=== PATIENT | male | born 1945 | race Asian ===

== ENCOUNTER 2022-09-29 18:36 | Inpatient (IN) | payer MEDICARE, OTHER ==
[~2022-09-29] VITALS: Ht 172.7 cm; Wt 80.7 kg
[2022-09-29 20:30] VITALS: BP 135/85
[2022-09-29] MEDS ORDERED: ALBUTEROL SULFATE HFA 90 MCG/PUFF 8 GM INHALER IH PRN (20:30)
[2022-09-29] MEDS ORDERED: BISACODYL 10 MG RECTAL RECTAL SUPPOSITORY PR PRN (20:30)
[2022-09-29] MEDS ORDERED: OxyCODONE HCL 5 MG IR TABLET PO PRN (20:30)
[2022-09-29] MEDS: BUDESONIDE/FORMOTEROL FUMARATE 160-4.5 MCG/PUFF 10.2 GM INHALER IH SCH ×2 (21:00→21:23)
[2022-09-29 21:15] VITALS: BP 135/85
[2022-09-29] MEDS: ETHYL ALCOHOL 62% ANTISEPTIC NASAL SANITIZER 0.6 ML AMPUL NASAL SCH (21:15)
[2022-09-29] MEDS: DOCUSATE SODIUM 100 MG CAPSULE PO SCH (21:15)
[2022-09-29] MEDS: LevETIRAcetam 500 MG TABLET PO SCH (21:16)
[2022-09-29] MEDS: MONTELUKAST SODIUM 10 MG TABLET PO SCH (21:16)
[2022-09-29] MEDS: ATORVASTATIN CALCIUM 20 MG TABLET PO SCH (21:17)
[2022-09-29] MEDS: SENNOSIDES 8.6 MG TABLET PO SCH (21:17)
[2022-09-29] MEDS: SODIUM CHLORIDE 1 GM TABLET PO SCH (21:18)
[2022-09-29] MEDS: TERAZOSIN HCL 5 MG CAPSULE PO SCH (21:18)
[2022-09-29] MEDS: TraZODone HCL 50 MG TABLET PO PRN (21:23)
[2022-09-29] MEDS: IPRATROPIUM BROMIDE 0.5 MG/2.5 ML NEB SOLUTION NEB PRN (21:53)
[2022-09-30] MEDS ORDERED: PNEUMOCOCCAL VACCINE POLYVALENT 0.5 ML VIAL [PPSV23] IM. ONE (03:45)
[2022-09-30 04:10] VITALS: BP 151/78
[2022-09-30 04:15] VITALS: BP 125/87
[2022-09-30 06:37] LABS: BASOPHILS % (AUTO) 0.5 % (0.0-2.0); EOSINOPHILS % (AUTO) 1.6 % (1.0-6.0); HEMOGLOBIN 12.7 g/dL (13.5-17.5); LYMPHOCYTES % (AUTO) 13.5 % (22.0-44.0); MEAN CORPUSCULAR HGB CONC 33.6 G/dL (31.0-37.0); MEAN CORPUSCULAR VOLUME 98 fL (80-100); MONOCYTES # (AUTO) 0.9 K/uL (0.1-1.0); MONOCYTES % (AUTO) 12.3 % (2.0-9.0); NEUTROPHILS # (AUTO) 5.5 K/uL (1.8-7.7); NEUTROPHILS % (AUTO) 72.1 % (40.0-70.0); PLATELET COUNT (AUTO) 263 K/uL (150-450); RED BLOOD CELL COUNT(AUTO) 3.86 MIL/uL (4.50-5.90); RED CELL DISTRIBUTION WIDTH 12.9 % (11.5-14.5)
[2022-09-30 07:05] LABS: ALANINE AMINOTRANSFERASE 48 U/L (12-78); ALBUMIN 3.1 g/dL (3.4-5.0); ALKALINE PHOSPHATASE 58 U/L (46-116); ANION GAP 8 mmol/L (8-16); ASPARTATE AMINOTRANSFERASE 28 U/L (15-37); BILIRUBIN,TOTAL 0.7 mg/dL (0.1-1.0); CALCIUM, TOTAL 8.5 mg/dL (8.8-10.5); CARBON DIOXIDE 24 mmol/L (22-29); CHLORIDE 107 mmol/L (98-107); CREATININE 0.77 mg/dL (0.60-1.30); GLOMERULAR FILTR. RATE CALC > 60 mL/min (>60); GLUCOSE,RANDOM 111 mg/dL (70-110); POTASSIUM 4.1 mmol/L (3.5-5.1); SODIUM SERUM 139 mmol/L (136-145); TOTAL PROTEIN, SERUM 7.2 g/dL (6.4-8.2); UREA NITROGEN, BLOOD 16 mg/dL (7-18)
[2022-09-30] MEDS: LevETIRAcetam 500 MG TABLET PO SCH ×2 (08:20→21:03)
[2022-09-30] MEDS: AmLODIPine BESYLATE 2.5 MG TABLET PO SCH (08:20)
[2022-09-30] MEDS: MULTIVITAMINS WITH MINERALS, THERAPEUTIC TABLET PO SCH (08:20)
[2022-09-30] MEDS: DOCUSATE SODIUM 100 MG CAPSULE PO SCH ×2 (08:20→21:00)
[2022-09-30] MEDS: ETHYL ALCOHOL 62% ANTISEPTIC NASAL SANITIZER 0.6 ML AMPUL NASAL SCH ×2 (08:21→21:01)
[2022-09-30] MEDS: CETIRIZINE HCL 10 MG TABLET PO SCH (08:21)
[2022-09-30] MEDS: SODIUM CHLORIDE 1 GM TABLET PO SCH ×3 (08:21→21:02)
[2022-09-30] MEDS: BUDESONIDE/FORMOTEROL FUMARATE 160-4.5 MCG/PUFF 10.2 GM INHALER IH SCH ×3 (08:22→21:00)
[2022-09-30 08:30] VITALS: BP 134/81
[2022-09-30] MEDS ORDERED: ALBUTEROL SULFATE HFA 90 MCG/PUFF 8 GM INHALER IH PRN (08:30)
[2022-09-30 20:01] VITALS: BP 132/98
[2022-09-30] MEDS: SENNOSIDES 8.6 MG TABLET PO SCH (21:00)
[2022-09-30] MEDS: ATORVASTATIN CALCIUM 20 MG TABLET PO SCH (21:02)
[2022-09-30] MEDS: TraZODone HCL 50 MG TABLET PO PRN (21:02)
[2022-09-30] MEDS: MONTELUKAST SODIUM 10 MG TABLET PO SCH (21:02)
[2022-09-30] MEDS: TERAZOSIN HCL 5 MG CAPSULE PO SCH (21:02)
[2022-09-30] MEDS: IPRATROPIUM BROMIDE 0.5 MG/2.5 ML NEB SOLUTION NEB PRN (22:00)
[2022-10-01] MEDS: AmLODIPine BESYLATE 2.5 MG TABLET PO SCH (09:00)
[2022-10-01] MEDS: DOCUSATE SODIUM 100 MG CAPSULE PO SCH ×2 (09:00→21:00)
[2022-10-01] MEDS: BUDESONIDE/FORMOTEROL FUMARATE 160-4.5 MCG/PUFF 10.2 GM INHALER IH SCH ×2 (10:03→21:00)
[2022-10-01] MEDS: ETHYL ALCOHOL 62% ANTISEPTIC NASAL SANITIZER 0.6 ML AMPUL NASAL SCH ×2 (10:03→21:08)
[2022-10-01] MEDS: SODIUM CHLORIDE 1 GM TABLET PO SCH ×3 (10:04→21:04)
[2022-10-01] MEDS: LevETIRAcetam 500 MG TABLET PO SCH ×2 (10:04→21:04)
[2022-10-01] MEDS: MULTIVITAMINS WITH MINERALS, THERAPEUTIC TABLET PO SCH (10:04)
[2022-10-01] MEDS: PANTOPRAZOLE SODIUM 40 MG DR TABLET PO SCH (10:05)
[2022-10-01] MEDS: CETIRIZINE HCL 10 MG TABLET PO SCH (10:05)
[2022-10-01 12:00] VITALS: BP 103/71
[2022-10-01 12:03] VITALS: BP 120/73
[2022-10-01 12:06] VITALS: BP 127/83
[2022-10-01 16:30] VITALS: BP 151/36
[2022-10-01 16:32] VITALS: BP 125/99
[2022-10-01 18:24] VITALS: BP 147/100
[2022-10-01] MEDS: SENNOSIDES 8.6 MG TABLET PO SCH (21:00)
[2022-10-01] MEDS: ATORVASTATIN CALCIUM 20 MG TABLET PO SCH (21:04)
[2022-10-01] MEDS: TERAZOSIN HCL 5 MG CAPSULE PO SCH (21:06)
[2022-10-01] MEDS: MONTELUKAST SODIUM 10 MG TABLET PO SCH (21:07)
[2022-10-01] MEDS: TraZODone HCL 50 MG TABLET PO PRN (21:08)
[2022-10-01] MEDS: IPRATROPIUM BROMIDE 0.5 MG/2.5 ML NEB SOLUTION NEB PRN (23:06)
[2022-10-01] MEDS: ALBUTEROL SULFATE 2.5 MG/0.5 ML NEB SOLUTION NEB PRN (23:06)
[2022-10-02 04:33] VITALS: BP 140/76
[2022-10-02] MEDS ORDERED: CETI-450 PO (04:33)
[2022-10-02] MEDS ORDERED: LISI-894 PO (04:33)
[2022-10-02] MEDS ORDERED: MONT-35 PO (04:33)
[2022-10-02] MEDS ORDERED: MULT-660 PO (04:33)
[2022-10-02] MEDS ORDERED: GUAI400T94 PO (04:33)
[2022-10-02] MEDS ORDERED: GLUC1TAB61 PO (04:33)
[2022-10-02] MEDS ORDERED: AMLO2.5T96 PO (04:33)
[2022-10-02] MEDS ORDERED: ALBU18HF12 IH (04:33)
[2022-10-02 08:05] VITALS: BP 141/96
[2022-10-02] MEDS: ETHYL ALCOHOL 62% ANTISEPTIC NASAL SANITIZER 0.6 ML AMPUL NASAL SCH ×2 (08:17→20:34)
[2022-10-02] MEDS: BUDESONIDE/FORMOTEROL FUMARATE 160-4.5 MCG/PUFF 10.2 GM INHALER IH SCH ×2 (08:17→20:38)
[2022-10-02] MEDS: SODIUM CHLORIDE 1 GM TABLET PO SCH ×3 (08:18→20:34)
[2022-10-02] MEDS: PANTOPRAZOLE SODIUM 40 MG DR TABLET PO SCH (08:18)
[2022-10-02] MEDS: CETIRIZINE HCL 10 MG TABLET PO SCH (08:18)
[2022-10-02] MEDS: AmLODIPine BESYLATE 2.5 MG TABLET PO SCH (08:18)
[2022-10-02] MEDS: MULTIVITAMINS WITH MINERALS, THERAPEUTIC TABLET PO SCH (08:18)
[2022-10-02] MEDS: DOCUSATE SODIUM 100 MG CAPSULE PO SCH ×2 (08:18→20:38)
[2022-10-02] MEDS: LevETIRAcetam 500 MG TABLET PO SCH ×2 (08:18→20:34)
[2022-10-02 10:00] VITALS: BP 136/93
[2022-10-02 10:05] VITALS: BP 137/87
[2022-10-02 20:25] VITALS: BP 145/89
[2022-10-02] MEDS: TERAZOSIN HCL 5 MG CAPSULE PO SCH (20:34)
[2022-10-02] MEDS: TraZODone HCL 50 MG TABLET PO PRN (20:34)
[2022-10-02] MEDS: ATORVASTATIN CALCIUM 20 MG TABLET PO SCH (20:34)
[2022-10-02] MEDS: MONTELUKAST SODIUM 10 MG TABLET PO SCH (20:38)
[2022-10-02] MEDS: SENNOSIDES 8.6 MG TABLET PO SCH (20:38)
[2022-10-02] MEDS: IPRATROPIUM BROMIDE 0.5 MG/2.5 ML NEB SOLUTION NEB PRN (21:12)
[2022-10-03] MEDS: ACETAMINOPHEN 325 MG TABLET PO PRN ×2 (01:44→10:11)
[2022-10-03 08:05] VITALS: BP 128/65
[2022-10-03] MEDS: PANTOPRAZOLE SODIUM 40 MG DR TABLET PO SCH (08:46)
[2022-10-03] MEDS: ETHYL ALCOHOL 62% ANTISEPTIC NASAL SANITIZER 0.6 ML AMPUL NASAL SCH ×2 (08:46→21:08)
[2022-10-03] MEDS: MULTIVITAMINS WITH MINERALS, THERAPEUTIC TABLET PO SCH (08:46)
[2022-10-03] MEDS: AmLODIPine BESYLATE 2.5 MG TABLET PO SCH (08:47)
[2022-10-03] MEDS: LevETIRAcetam 500 MG TABLET PO SCH ×2 (08:47→21:10)
[2022-10-03] MEDS: DOCUSATE SODIUM 100 MG CAPSULE PO SCH ×2 (08:50→21:00)
[2022-10-03] MEDS: SODIUM CHLORIDE 1 GM TABLET PO SCH ×2 (08:50→21:10)
[2022-10-03] MEDS: CETIRIZINE HCL 10 MG TABLET PO SCH (08:52)
[2022-10-03] MEDS: BUDESONIDE/FORMOTEROL FUMARATE 160-4.5 MCG/PUFF 10.2 GM INHALER IH SCH ×2 (08:54→21:00)
[2022-10-03] MEDS: COLCHICINE 0.6 MG TABLET PO SCH (15:45)
[2022-10-03] MEDS: DICLOFENAC SODIUM 1% 100 GM GEL [4GM] TP SCH ×2 (15:45→21:11)
[2022-10-03 21:00] VITALS: BP 146/86
[2022-10-03] MEDS: SENNOSIDES 8.6 MG TABLET PO SCH (21:00)
[2022-10-03] MEDS: MONTELUKAST SODIUM 10 MG TABLET PO SCH (21:10)
[2022-10-03] MEDS: TERAZOSIN HCL 5 MG CAPSULE PO SCH (21:10)
[2022-10-03] MEDS: ATORVASTATIN CALCIUM 20 MG TABLET PO SCH (21:10)
[2022-10-04] MEDS: IPRATROPIUM BROMIDE 0.5 MG/2.5 ML NEB SOLUTION NEB PRN ×2 (00:22→22:02)
[2022-10-04] MEDS: ALBUTEROL SULFATE 2.5 MG/0.5 ML NEB SOLUTION NEB PRN ×2 (00:22→22:02)
[2022-10-04] MEDS: MULTIVITAMINS WITH MINERALS, THERAPEUTIC TABLET PO SCH (07:37)
[2022-10-04] MEDS: AmLODIPine BESYLATE 2.5 MG TABLET PO SCH (07:37)
[2022-10-04] MEDS: LevETIRAcetam 500 MG TABLET PO SCH ×2 (07:37→21:26)
[2022-10-04] MEDS: ETHYL ALCOHOL 62% ANTISEPTIC NASAL SANITIZER 0.6 ML AMPUL NASAL SCH ×2 (07:37→21:28)
[2022-10-04] MEDS: DOCUSATE SODIUM 100 MG CAPSULE PO SCH ×2 (07:38→21:00)
[2022-10-04] MEDS: CETIRIZINE HCL 10 MG TABLET PO SCH (07:38)
[2022-10-04] MEDS: COLCHICINE 0.6 MG TABLET PO SCH (07:38)
[2022-10-04] MEDS: SODIUM CHLORIDE 1 GM TABLET PO SCH ×2 (07:38→21:27)
[2022-10-04] MEDS: DICLOFENAC SODIUM 1% 100 GM GEL [4GM] TP SCH ×3 (07:39→21:27)
[2022-10-04] MEDS: BUDESONIDE/FORMOTEROL FUMARATE 160-4.5 MCG/PUFF 10.2 GM INHALER IH SCH ×2 (07:39→21:00)
[2022-10-04] MEDS: PANTOPRAZOLE SODIUM 40 MG DR TABLET PO SCH (07:44)
[2022-10-04 08:36] VITALS: BP 138/78
[2022-10-04 21:00] VITALS: BP 131/88
[2022-10-04] MEDS: SENNOSIDES 8.6 MG TABLET PO SCH (21:00)
[2022-10-04] MEDS: TERAZOSIN HCL 5 MG CAPSULE PO SCH (21:26)
[2022-10-04] MEDS: MONTELUKAST SODIUM 10 MG TABLET PO SCH (21:27)
[2022-10-04] MEDS: ATORVASTATIN CALCIUM 20 MG TABLET PO SCH (21:27)
[2022-10-05 08:43] LABS: ANION GAP 6 mmol/L (8-16); CALCIUM, TOTAL 8.8 mg/dL (8.8-10.5); CARBON DIOXIDE 29 mmol/L (22-29); CHLORIDE 106 mmol/L (98-107); CREATININE 0.76 mg/dL (0.60-1.30); GLOMERULAR FILTR. RATE CALC > 60 mL/min (>60); GLUCOSE,RANDOM 116 mg/dL (70-110); POTASSIUM 4.4 mmol/L (3.5-5.1); SODIUM SERUM 141 mmol/L (136-145); UREA NITROGEN, BLOOD 15 mg/dL (7-18)
[2022-10-05] MEDS: COLCHICINE 0.6 MG TABLET PO SCH (09:00)
[2022-10-05] MEDS: DOCUSATE SODIUM 100 MG CAPSULE PO SCH ×2 (09:00→20:07)
[2022-10-05] MEDS: BUDESONIDE/FORMOTEROL FUMARATE 160-4.5 MCG/PUFF 10.2 GM INHALER IH SCH ×2 (09:00→20:07)
[2022-10-05] MEDS: LevETIRAcetam 500 MG TABLET PO SCH ×2 (09:50→20:06)
[2022-10-05] MEDS: ETHYL ALCOHOL 62% ANTISEPTIC NASAL SANITIZER 0.6 ML AMPUL NASAL SCH ×2 (09:50→20:07)
[2022-10-05] MEDS: PANTOPRAZOLE SODIUM 40 MG DR TABLET PO SCH (09:50)
[2022-10-05] MEDS: MULTIVITAMINS WITH MINERALS, THERAPEUTIC TABLET PO SCH (09:51)
[2022-10-05] MEDS: CETIRIZINE HCL 10 MG TABLET PO SCH (09:51)
[2022-10-05] MEDS: SODIUM CHLORIDE 1 GM TABLET PO SCH (09:51)
[2022-10-05] MEDS: DICLOFENAC SODIUM 1% 100 GM GEL [4GM] TP SCH ×3 (09:52→20:08)
[2022-10-05] MEDS: AmLODIPine BESYLATE 2.5 MG TABLET PO SCH (10:05)
[2022-10-05 20:01] VITALS: BP 144/89
[2022-10-05] MEDS: MONTELUKAST SODIUM 10 MG TABLET PO SCH (20:05)
[2022-10-05] MEDS: TERAZOSIN HCL 5 MG CAPSULE PO SCH (20:06)
[2022-10-05] MEDS: ATORVASTATIN CALCIUM 20 MG TABLET PO SCH (20:06)
[2022-10-05] MEDS: SENNOSIDES 8.6 MG TABLET PO SCH (20:08)
[2022-10-05] MEDS: IPRATROPIUM BROMIDE 0.5 MG/2.5 ML NEB SOLUTION NEB PRN (20:55)
[2022-10-05] MEDS: ALBUTEROL SULFATE 2.5 MG/0.5 ML NEB SOLUTION NEB PRN (20:55)
[2022-10-06] MEDS: BUDESONIDE/FORMOTEROL FUMARATE 160-4.5 MCG/PUFF 10.2 GM INHALER IH SCH ×2 (08:24→20:35)
[2022-10-06] MEDS: DOCUSATE SODIUM 100 MG CAPSULE PO SCH ×2 (08:24→20:33)
[2022-10-06] MEDS: MULTIVITAMINS WITH MINERALS, THERAPEUTIC TABLET PO SCH (08:26)
[2022-10-06] MEDS: SODIUM CHLORIDE 1 GM TABLET PO SCH (08:26)
[2022-10-06] MEDS: ETHYL ALCOHOL 62% ANTISEPTIC NASAL SANITIZER 0.6 ML AMPUL NASAL SCH ×2 (08:26→20:20)
[2022-10-06] MEDS: DICLOFENAC SODIUM 1% 100 GM GEL [4GM] TP SCH ×3 (08:26→20:21)
[2022-10-06] MEDS: PANTOPRAZOLE SODIUM 40 MG DR TABLET PO SCH (08:27)
[2022-10-06] MEDS: COLCHICINE 0.6 MG TABLET PO SCH (08:27)
[2022-10-06] MEDS: AmLODIPine BESYLATE 2.5 MG TABLET PO SCH (08:27)
[2022-10-06] MEDS: CETIRIZINE HCL 10 MG TABLET PO SCH (08:27)
[2022-10-06 08:30] VITALS: BP 133/70
[2022-10-06 09:14] LABS: BASOPHILS % (AUTO) 0.5 % (0.0-2.0); EOSINOPHILS % (AUTO) 1.6 % (1.0-6.0); HEMATOCRIT 39.2 % (41-53); HEMOGLOBIN 13.4 g/dL (13.5-17.5); LYMPHOCYTES # (AUTO) 1.1 K/uL (1.0-4.8); LYMPHOCYTES % (AUTO) 16.1 % (22.0-44.0); MEAN CORPUSCULAR HEMOGLOBIN 33.4 pg (26.0-34.0); MEAN CORPUSCULAR VOLUME 98 fL (80-100); MONOCYTES # (AUTO) 0.6 K/uL (0.1-1.0); MONOCYTES % (AUTO) 8.7 % (2.0-9.0); NEUTROPHILS % (AUTO) 73.1 % (40.0-70.0); PLATELET COUNT (AUTO) 322 K/uL (150-450); RED CELL DISTRIBUTION WIDTH 12.3 % (11.5-14.5)
[2022-10-06 09:24] LABS: ANION GAP 9 mmol/L (8-16); CALCIUM, TOTAL 8.7 mg/dL (8.8-10.5); CARBON DIOXIDE 26 mmol/L (22-29); CHLORIDE 104 mmol/L (98-107); CREATININE 0.85 mg/dL (0.60-1.30); GLOMERULAR FILTR. RATE CALC > 60 mL/min (>60); GLUCOSE,RANDOM 197 mg/dL (70-110); POTASSIUM 3.5 mmol/L (3.5-5.1); SODIUM SERUM 139 mmol/L (136-145); UREA NITROGEN, BLOOD 15 mg/dL (7-18)
[2022-10-06] MEDS: ACETAMINOPHEN 325 MG TABLET PO PRN (15:29)
[2022-10-06] MEDS: MONTELUKAST SODIUM 10 MG TABLET PO SCH (20:21)
[2022-10-06] MEDS: LevETIRAcetam 500 MG TABLET PO SCH (20:21)
[2022-10-06] MEDS: TERAZOSIN HCL 5 MG CAPSULE PO SCH (20:21)
[2022-10-06] MEDS: ATORVASTATIN CALCIUM 20 MG TABLET PO SCH (20:21)
[2022-10-06] MEDS: SENNOSIDES 8.6 MG TABLET PO SCH (20:34)
[2022-10-06 21:00] VITALS: BP 132/90
[2022-10-06] MEDS: IPRATROPIUM BROMIDE 0.5 MG/2.5 ML NEB SOLUTION NEB PRN (21:01)
[2022-10-07] MEDS ORDERED: MULT-1239 PO (01:54)
[2022-10-07] MEDS ORDERED: PANT-31 PO (01:54)
[2022-10-07] MEDS ORDERED: BUDE10.26 IH (01:54)
[2022-10-07] MEDS ORDERED: NACL1 PO (01:54)
[2022-10-07] MEDS ORDERED: COLC0.6T73 PO (01:54)
[2022-10-07] MEDS ORDERED: TERA5CAP77 PO (01:58)
[2022-10-07] MEDS ORDERED: DICL100G51 TP (01:58)
[2022-10-07] MEDS ORDERED: LEVE500T20 PO (01:58)
[2022-10-07] MEDS ORDERED: ATOR20TA86 PO (01:58)
[2022-10-07] MEDS ORDERED: SENN-187 PO (02:06)
[2022-10-07] MEDS ORDERED: DOCU-385 PO (02:06)
[2022-10-07 08:10] VITALS: BP 143/81
[2022-10-07] MEDS: BUDESONIDE/FORMOTEROL FUMARATE 160-4.5 MCG/PUFF 10.2 GM INHALER IH SCH ×2 (09:00→20:41)
[2022-10-07] MEDS: PANTOPRAZOLE SODIUM 40 MG DR TABLET PO SCH (09:03)
[2022-10-07] MEDS: DOCUSATE SODIUM 100 MG CAPSULE PO SCH ×2 (09:03→20:41)
[2022-10-07] MEDS: MULTIVITAMINS WITH MINERALS, THERAPEUTIC TABLET PO SCH (09:03)
[2022-10-07] MEDS: AmLODIPine BESYLATE 2.5 MG TABLET PO SCH (09:03)
[2022-10-07] MEDS: DICLOFENAC SODIUM 1% 100 GM GEL [4GM] TP SCH ×3 (09:04→20:48)
[2022-10-07] MEDS: COLCHICINE 0.6 MG TABLET PO SCH (09:04)
[2022-10-07] MEDS: CETIRIZINE HCL 10 MG TABLET PO SCH (09:04)
[2022-10-07] MEDS: ETHYL ALCOHOL 62% ANTISEPTIC NASAL SANITIZER 0.6 ML AMPUL NASAL SCH ×2 (09:04→20:41)
[2022-10-07] MEDS: SODIUM CHLORIDE 1 GM TABLET PO SCH (09:04)
[2022-10-07] MEDS: LevETIRAcetam 500 MG TABLET PO SCH (20:41)
[2022-10-07] MEDS: ATORVASTATIN CALCIUM 20 MG TABLET PO SCH (20:41)
[2022-10-07] MEDS: TERAZOSIN HCL 5 MG CAPSULE PO SCH (20:42)
[2022-10-07] MEDS: MONTELUKAST SODIUM 10 MG TABLET PO SCH (20:42)
[2022-10-07 20:48] VITALS: BP 140/65
[2022-10-07] MEDS: ACETAMINOPHEN 325 MG TABLET PO PRN (20:48)
[2022-10-07] MEDS: SENNOSIDES 8.6 MG TABLET PO SCH (20:54)
[2022-10-07 21:00] VITALS: BP 140/65
[2022-10-07] MEDS: IPRATROPIUM BROMIDE 0.5 MG/2.5 ML NEB SOLUTION NEB PRN (21:02)
[2022-10-07] MEDS: ALBUTEROL SULFATE 2.5 MG/0.5 ML NEB SOLUTION NEB PRN (21:02)
[2022-10-08] MEDS ORDERED: LEVE250T4 PO (04:53)
[2022-10-08 08:05] VITALS: BP 133/89
[2022-10-08] MEDS: BUDESONIDE/FORMOTEROL FUMARATE 160-4.5 MCG/PUFF 10.2 GM INHALER IH SCH ×2 (08:57→21:00)
[2022-10-08] MEDS: COLCHICINE 0.6 MG TABLET PO SCH (08:58)
[2022-10-08] MEDS: DOCUSATE SODIUM 100 MG CAPSULE PO SCH ×2 (08:58→21:14)
[2022-10-08] MEDS: PANTOPRAZOLE SODIUM 40 MG DR TABLET PO SCH (08:58)
[2022-10-08] MEDS: AmLODIPine BESYLATE 2.5 MG TABLET PO SCH (08:58)
[2022-10-08] MEDS: SODIUM CHLORIDE 1 GM TABLET PO SCH (08:58)
[2022-10-08] MEDS: MULTIVITAMINS WITH MINERALS, THERAPEUTIC TABLET PO SCH (08:58)
[2022-10-08] MEDS: ETHYL ALCOHOL 62% ANTISEPTIC NASAL SANITIZER 0.6 ML AMPUL NASAL SCH ×2 (08:58→21:16)
[2022-10-08] MEDS: DICLOFENAC SODIUM 1% 100 GM GEL [4GM] TP SCH ×3 (08:59→21:15)
[2022-10-08] MEDS: CETIRIZINE HCL 10 MG TABLET PO SCH (08:59)
[2022-10-08] MEDS ORDERED: COLCHICINE 0.6 MG TABLET PO ONE (10:00)
[2022-10-08] MEDS ORDERED: CETI-450 PO (10:24)
[2022-10-08] MEDS ORDERED: DICL100G51 TP (10:24)
[2022-10-08] MEDS ORDERED: MULT-1239 PO (10:24)
[2022-10-08] MEDS ORDERED: ATOR20TA65 PO (10:24)
[2022-10-08] MEDS ORDERED: ACET325T51 PO (10:24)
[2022-10-08] MEDS ORDERED: PANT-31 PO (10:24)
[2022-10-08] MEDS ORDERED: COLC0.6T73 PO (10:24)
[2022-10-08] MEDS ORDERED: MONT-35 PO (10:24)
[2022-10-08] MEDS ORDERED: DOCU-385 PO (10:24)
[2022-10-08] MEDS ORDERED: ALBUTEROL SULFATE IH (10:24)
[2022-10-08] MEDS ORDERED: SENN-187 PO (10:24)
[2022-10-08] MEDS ORDERED: BUDE10.26 IH (10:24)
[2022-10-08] MEDS ORDERED: TRAZ-252 PO (10:24)
[2022-10-08] MEDS ORDERED: TERA5CAP4 PO (10:24)
[2022-10-08] MEDS ORDERED: AMLO2.5T96 PO (10:24)
[2022-10-08] MEDS ORDERED: IPRNEB NEB (10:24)
[2022-10-08 20:02] VITALS: BP 127/79
[2022-10-08] MEDS: ALBUTEROL SULFATE 2.5 MG/0.5 ML NEB SOLUTION NEB PRN (20:10)
[2022-10-08] MEDS: IPRATROPIUM BROMIDE 0.5 MG/2.5 ML NEB SOLUTION NEB PRN (20:10)
[2022-10-08] MEDS: TERAZOSIN HCL 5 MG CAPSULE PO SCH (21:13)
[2022-10-08] MEDS: LevETIRAcetam 500 MG TABLET PO SCH (21:14)
[2022-10-08] MEDS: MONTELUKAST SODIUM 10 MG TABLET PO SCH (21:15)
[2022-10-08] MEDS: ATORVASTATIN CALCIUM 20 MG TABLET PO SCH (21:15)
[2022-10-08] MEDS: TraZODone HCL 50 MG TABLET PO PRN (21:15)
[2022-10-08] MEDS: SENNOSIDES 8.6 MG TABLET PO SCH (21:15)
[2022-10-09 08:00] VITALS: BP 134/74
[2022-10-09] MEDS: ETHYL ALCOHOL 62% ANTISEPTIC NASAL SANITIZER 0.6 ML AMPUL NASAL SCH (08:26)
[2022-10-09] MEDS: SODIUM CHLORIDE 1 GM TABLET PO SCH (08:26)
[2022-10-09] MEDS: COLCHICINE 0.6 MG TABLET PO SCH (08:26)
[2022-10-09] MEDS: BUDESONIDE/FORMOTEROL FUMARATE 160-4.5 MCG/PUFF 10.2 GM INHALER IH SCH (08:26)
[2022-10-09] MEDS: MULTIVITAMINS WITH MINERALS, THERAPEUTIC TABLET PO SCH (08:26)
[2022-10-09] MEDS: DOCUSATE SODIUM 100 MG CAPSULE PO SCH (08:26)
[2022-10-09] MEDS: AmLODIPine BESYLATE 2.5 MG TABLET PO SCH (08:26)
[2022-10-09] MEDS: PANTOPRAZOLE SODIUM 40 MG DR TABLET PO SCH (08:26)
[2022-10-09] MEDS: DICLOFENAC SODIUM 1% 100 GM GEL [4GM] TP SCH ×2 (08:27→16:01)
[2022-10-09] MEDS: CETIRIZINE HCL 10 MG TABLET PO SCH (08:27)
[2022-10-09 10:06] LABS: ANION GAP 8 mmol/L (8-16); CALCIUM, TOTAL 8.9 mg/dL (8.8-10.5); CARBON DIOXIDE 27 mmol/L (22-29); CHLORIDE 105 mmol/L (98-107); CREATININE 0.92 mg/dL (0.60-1.30); GLOMERULAR FILTR. RATE CALC > 60 mL/min (>60); GLUCOSE,RANDOM 178 mg/dL (70-110); POTASSIUM 4.2 mmol/L (3.5-5.1); SODIUM SERUM 140 mmol/L (136-145); UREA NITROGEN, BLOOD 16 mg/dL (7-18)
== END 2022-10-09 18:25 | disposition home health service (06) | DRG 86 ==
LOC: 2WR 19:42
PROVIDERS: ADMIT Physical Medicine & Rehabilitation; ATTEND Physical Medicine & Rehabilitation
PROC: 3E0234Z Introduction of Serum, Toxoid and Vaccine into Muscle, Percutaneous Approach (ICD-10-PCS; principal; 2022-09-29)
DX: S06.5X0A Traumatic subdural hemorrhage without loss of consciousness, initial encounter (principal); E87.1 Hypo-osmolality and hyponatremia; I10 Essential (primary) hypertension; D64.9 Anemia, unspecified; F32.A Depression, unspecified; F43.10 Post-traumatic stress disorder, unspecified; J45.909 Unspecified asthma, uncomplicated; N40.0 Benign prostatic hyperplasia without lower urinary tract symptoms; R13.10 Dysphagia, unspecified; R29.6 Repeated falls; M10.9 Gout, unspecified; X58.XXXA Exposure to other specified factors, initial encounter; R53.1 Weakness; R41.89 Other symptoms and signs involving cognitive functions and awareness; R47.1 Dysarthria and anarthria; Z63.4 Disappearance and death of family member; Z88.6 Allergy status to analgesic agent; Y93.89 Activity, other specified; Y92.89 Other specified places as the place of occurrence of the external cause; Y99.8 Other external cause status; Z79.899 Other long term (current) drug therapy
CPT/HCPCS: 70450; 80048; 80053; 85025; 87081; 90732; 92507; 92523; 92526; 92610; 94640; 97110; 97112; 97116; 97162; 97166; 97530; 97535; 99366